=== PATIENT | female | born 1940 ===

== ENCOUNTER → 2017-06-01 09:36 | Outpatient (CLI) | payer OTHER ==
[~2017-06-01 09:36] MED LIST: ZITHROMAX TRI-500 MG PO
== END | disposition home or self-care (01) ==
LOC: LAB 09:36
DX: I11.9 Hypertensive heart disease without heart failure (principal); E78.2 Mixed hyperlipidemia; E55.9 Vitamin D deficiency, unspecified; R53.1 Weakness; Z12.11 Encounter for screening for malignant neoplasm of colon

== ENCOUNTER 2017-09-28 09:40 | Outpatient (CLI) | payer OTHER | END 2017-09-28 09:48 | disposition home or self-care (01) | LOC: LAB 09:40 | DX: N39.0 Urinary tract infection, site not specified (principal); D64.89 Other specified anemias; E78.2 Mixed hyperlipidemia ==

== ENCOUNTER 2018-05-13 10:30 | Outpatient (CLI) | payer OTHER | END 2018-05-13 10:36 | disposition home or self-care (01) | LOC: LAB 10:30 | DX: G63 Polyneuropathy in diseases classified elsewhere (principal); I11.9 Hypertensive heart disease without heart failure; E55.9 Vitamin D deficiency, unspecified ==

== ENCOUNTER 2018-07-11 13:59 | Outpatient (CLI) | payer OTHER | END 2018-07-11 14:01 | disposition home or self-care (01) | LOC: SONOGRAMA 13:59 | DX: E04.8 Other specified nontoxic goiter (principal); E46 Unspecified protein-calorie malnutrition; Z12.39 Encounter for other screening for malignant neoplasm of breast; E55.9 Vitamin D deficiency, unspecified; R53.1 Weakness; I11.9 Hypertensive heart disease without heart failure ==

== ENCOUNTER 2018-08-18 09:52 | Outpatient (CLI) | payer OTHER | END 2018-08-18 10:17 | disposition home or self-care (01) | LOC: LAB 09:52 | DX: E46 Unspecified protein-calorie malnutrition (principal); I11.9 Hypertensive heart disease without heart failure; E55.9 Vitamin D deficiency, unspecified ==

== ENCOUNTER → 2019-05-10 09:46 | Outpatient (CLI) | payer OTHER | END | disposition home or self-care (01) | LOC: LAB 09:46 | DX: E55.9 Vitamin D deficiency, unspecified (principal); Z13.29 Encounter for screening for other suspected endocrine disorder; E78.1 Pure hyperglyceridemia; R00.2 Palpitations; I11.9 Hypertensive heart disease without heart failure; E11.9 Type 2 diabetes mellitus without complications; E78.2 Mixed hyperlipidemia ==

== ENCOUNTER → 2020-10-28 08:16 | Outpatient (CLI) | payer OTHER | END | disposition home or self-care (01) | LOC: LAB 08:16 | PROVIDERS: ATTEND Internal Medicine | DX: I11.9 Hypertensive heart disease without heart failure (principal); Z12.11 Encounter for screening for malignant neoplasm of colon; Z13.29 Encounter for screening for other suspected endocrine disorder; R53.1 Weakness; E55.9 Vitamin D deficiency, unspecified; E78.1 Pure hyperglyceridemia; R06.01 Orthopnea ==

== ENCOUNTER → 2020-10-29 11:27 | Outpatient (CLI) | payer OTHER | END | disposition home or self-care (01) | LOC: LAB 11:27 | PROVIDERS: ATTEND Internal Medicine | DX: I11.9 Hypertensive heart disease without heart failure (principal); E46 Unspecified protein-calorie malnutrition; Z13.29 Encounter for screening for other suspected endocrine disorder; R53.1 Weakness; E55.9 Vitamin D deficiency, unspecified; E78.1 Pure hyperglyceridemia; R06.01 Orthopnea; Z12.11 Encounter for screening for malignant neoplasm of colon ==

== ENCOUNTER 2020-10-29 12:03 | Outpatient (CLI) | payer OTHER | END 2020-10-29 12:09 | disposition home or self-care (01) | LOC: RAD 12:03 | PROVIDERS: ATTEND Internal Medicine | DX: I10 Essential (primary) hypertension (principal); I11.9 Hypertensive heart disease without heart failure; E55.9 Vitamin D deficiency, unspecified; E78.1 Pure hyperglyceridemia; R06.01 Orthopnea; Z13.29 Encounter for screening for other suspected endocrine disorder; R53.1 Weakness ==

== ENCOUNTER 2020-11-07 11:18 | Outpatient (CLI) | payer OTHER | END 2020-11-07 14:28 | disposition home or self-care (01) | LOC: SONOGRAMA 11:18 | PROVIDERS: ATTEND Internal Medicine | DX: E04.1 Nontoxic single thyroid nodule (principal); I11.9 Hypertensive heart disease without heart failure; E55.9 Vitamin D deficiency, unspecified ==

== ENCOUNTER 2021-02-18 11:38 | Outpatient (CLI) | payer OTHER | END 2021-02-18 11:39 | disposition home or self-care (01) | LOC: LAB 11:38 | PROVIDERS: ATTEND Ophthalmology | DX: D68.8 Other specified coagulation defects (principal); H25.012 Cortical age-related cataract, left eye ==

== ENCOUNTER 2021-10-07 09:24 | Outpatient (CLI) | payer OTHER | END 2021-10-07 09:25 | disposition home or self-care (01) | LOC: LAB 09:24 | PROVIDERS: ATTEND Internal Medicine | DX: E55.9 Vitamin D deficiency, unspecified (principal); I11.9 Hypertensive heart disease without heart failure; J44.9 Chronic obstructive pulmonary disease, unspecified ==

== ENCOUNTER 2022-02-02 10:25 | Outpatient (CLI) | payer OTHER | END 2022-02-02 11:21 | disposition home or self-care (01) | LOC: LAB 10:25 | PROVIDERS: ATTEND Internal Medicine | DX: J44.9 Chronic obstructive pulmonary disease, unspecified (principal); E55.9 Vitamin D deficiency, unspecified; I11.9 Hypertensive heart disease without heart failure; Z13.29 Encounter for screening for other suspected endocrine disorder; E02 Subclinical iodine-deficiency hypothyroidism; R00.2 Palpitations; E78.2 Mixed hyperlipidemia; E11.9 Type 2 diabetes mellitus without complications ==

== ENCOUNTER 2022-06-23 09:58 | Outpatient (CLI) | payer OTHER | END 2022-06-23 09:59 | disposition home or self-care (01) | LOC: LAB 09:58 | PROVIDERS: ATTEND Internal Medicine | DX: E02 Subclinical iodine-deficiency hypothyroidism (principal); J44.9 Chronic obstructive pulmonary disease, unspecified; I11.9 Hypertensive heart disease without heart failure; E55.9 Vitamin D deficiency, unspecified ==

== ENCOUNTER → 2022-07-02 10:29 | Outpatient (CLI) | payer OTHER | END | disposition home or self-care (01) | LOC: LAB 10:29 | PROVIDERS: ATTEND Ophthalmology | DX: D68.8 Other specified coagulation defects (principal); H25.013 Cortical age-related cataract, bilateral; Z98.41 Cataract extraction status, right eye; H25.011 Cortical age-related cataract, right eye ==

== ENCOUNTER 2023-06-28 09:33 | Outpatient (CLI) | payer OTHER ==
[2023-06-28 10:13] LABS: HEMATOCRIT 38.4 % (36.0-45.00); HEMOGLOBIN 13.3 g/dL (12.0-15.00); MEAN CELL VOLUME 88.6 fL (80.00-100.00); MEAN CORPUSCULAR HEMOGLOBIN 30.7 pg (27.00-32.0); MEAN CORPUSCULAR HGB CONC 34.6 g/dl (32.0-36.0); PLATELET COUNT 172 K/uL (150-450); RED BLOOD COUNT 4.33 M/uL (4.00-6.00); RED CELL DISTRIBUTION WIDTH 14.8 % (11.5-14.5)
[2023-06-28 10:47] LABS: PH,URINE 5.5 (5.0-8.0); URINE APPEARANCE Clear; URINE BILIRRUBIN Negative (NEGATIVE); URINE BLOOD Negative; URINE COLOR Dark Yellow; URINE GLUCOSE Negative (NEGATIVE); URINE LEUKOCYTE Moderate; URINE NITRATE Negative; URINE PROTEIN Negative (NEGATIVE)
[2023-06-28 10:51] LABS: URINE EPITHELIAL CELLS 23.4 uL (0.0-38.8); URINE RBC 15.2 uL (0.0-20.8); URINE WBC 14.8 uL (0.0-23.2)
[2023-06-28 10:59] LABS: ALBUMIN 3.8 gm/dL (3.4-5.0); BILIRUBIN TOTAL 1.62 mg/dL (0.3-1.2); CALCIUM 9.6 mg/dL (8.5-10.1); CHOL HDL RATIO 2.7 (0-5.0); GFR 52.95; GLOBULINA 3.6 G/DL (2.4-3.5); MAGNESIUM 2.2 mg/dL (1.8-2.4); PHOSPHOROUS 2.7 mg/dL (2.5-4.9); POTASSIUM 3.74 mEq/L (3.5-5.1); T4 FREE 1.11 NG/ML (0.76-1.46); TOTAL PROTEIN 7.4 gm/dL (6.4-8.2); TSH 1.72 uIU/mL (0.358-3.74)
[2023-06-28 11:15] LABS: URIC ACID 4.5 mg/dL (2.5-7.5)
== END 2023-06-28 11:48 | disposition home or self-care (01) ==
LOC: LAB 09:33
DX: E04.2 Nontoxic multinodular goiter (principal); J44.9 Chronic obstructive pulmonary disease, unspecified; I11.9 Hypertensive heart disease without heart failure; R73.01 Impaired fasting glucose; N30.00 Acute cystitis without hematuria

== ENCOUNTER 2023-06-28 10:11 | Outpatient (CLI) | payer OTHER | END 2023-06-28 10:22 | disposition home or self-care (01) | LOC: RAD 10:11 | PROVIDERS: ATTEND Internal Medicine | DX: M25.572 Pain in left ankle and joints of left foot (principal); M25.571 Pain in right ankle and joints of right foot ==

== ENCOUNTER → 2024-07-24 09:04 | Outpatient (CLI) | payer OTHER ==
[2024-07-24 09:51] LABS: HEMATOCRIT 39.2 % (36.0-45.00); HEMOGLOBIN 13.4 g/dL (12.0-15.00); MEAN CELL VOLUME 89.5 fL (80.00-100.00); MEAN CORPUSCULAR HEMOGLOBIN 30.5 pg (27.00-32.0); MEAN CORPUSCULAR HGB CONC 34.1 g/dl (32.0-36.0); PLATELET COUNT 186 K/uL (150-450); RED BLOOD COUNT 4.37 M/uL (4.00-6.00); RED CELL DISTRIBUTION WIDTH 15.1 % (11.5-14.5)
[2024-07-24 11:17] LABS: CALCIUM 9.5 mg/dL (8.5-10.1); CREATININE SERUM 0.98 mg/dL (0.55-1.02); GFR 54.07; POTASSIUM 4.1 mEq/L (3.5-5.1)
== END | disposition home or self-care (01) ==
LOC: LAB 09:04
PROVIDERS: ATTEND Internal Medicine
DX: E80.6 Other disorders of bilirubin metabolism (principal); Z60.2 Problems related to living alone; E02 Subclinical iodine-deficiency hypothyroidism; J44.9 Chronic obstructive pulmonary disease, unspecified; I11.9 Hypertensive heart disease without heart failure

== ENCOUNTER → 2025-03-05 07:50 | Outpatient (CLI) | payer OTHER ==
[2025-03-05 09:17] LABS: URINE APPEARANCE Clear; URINE BILIRRUBIN Negative (NEGATIVE); URINE BLOOD Negative; URINE COLOR Dark Yellow; URINE GLUCOSE Negative (NEGATIVE); URINE KETONE 15 (NEGATIVE); URINE LEUKOCYTE Small; URINE NITRATE Negative; URINE PROTEIN Trace (NEGATIVE); URINE UROBILINOGEN 0.2 E.U./dl
[2025-03-05 09:19] LABS: URINE BACTERIA 25.1 uL (0.0-1933); URINE CAST 2.19 uL (0.0-1.40); URINE EPITHELIAL CELLS 8.1 uL (0.0-38.8); URINE RBC 9.6 uL (0.0-20.8); URINE WBC 12.4 uL (0.0-23.2)
[2025-03-05 10:12] LABS: BUN CREA RATIO 20.0 (7.0-25.0); CHOL HDL RATIO 2.6 (0-5.0); CREATININE SERUM 0.94 mg/dL (0.55-1.02); GFR 56.59; GLUCOSE FASTING 92.0 mg/dL (65-100); HDL 83.0 mg/dl (40-60); LDL 109.0 mg/dl (0-130); OSMOLALITY SERUM 287.0 MOSM/KG (275-295); T4 FREE 1.16 NG/ML (0.76-1.46); TSH 1.62 uIU/mL (0.358-3.74); VLDL 20.0 (0-39)
== END | disposition home or self-care (01) ==
LOC: LAB 07:50
PROVIDERS: ATTEND Internal Medicine
DX: J44.9 Chronic obstructive pulmonary disease, unspecified (principal); I11.9 Hypertensive heart disease without heart failure; E55.9 Vitamin D deficiency, unspecified; E02 Subclinical iodine-deficiency hypothyroidism; R73.01 Impaired fasting glucose; E78.1 Pure hyperglyceridemia